=== PATIENT | female | born 1950 | race Caucasian/White ===

== ENCOUNTER 2018-03-20 03:56 | Emergency (ER) | payer OTHER ==
[~2018-03-20] VITALS: Ht 162.6 cm; Wt 72.6 kg
[2018-03-20] MEDS ORDERED: ONDANSETRON HCL 4 MG/2 ML VIAL IV ONE (04:30)
[2018-03-20] MEDS ORDERED: NALBUPHINE HCL 10 MG/1ml INJECTION IV ONE (04:30)
[2018-03-20] MEDS ORDERED: KETOROLAC TROMETH 30 MG/ML 1ML VIAL IV ONE ×2 (04:30→09:15)
[2018-03-20 04:52] LABS: Basophils # (auto) 0.1 uL; Basophils % (auto) 0.9 % (0.0-2.0); Eosinophils # (auto) 0 uL; Eosinophils % (auto) 0.6 % (0.0-7.0); Hematocrit 43.6 % (36.0-46.0); Hemoglobin 14.5 g/dL (12.2-16.2); Lymphocytes # (auto) 1.7 uL; Lymphocytes % (auto) 32.2 % (10.0-50.0); Mean Corpuscular Hemoglobin 30.4 pg (28.0-32.0); Mean Corpuscular Hgb Conc. 33.4 g/dL (32.0-36.0); Monocytes # (auto) 0.5 uL; Monocytes % (auto) 10.2 % (0.0-12.0); Neutrophils % (auto) 56.1 % (37.0-80.0); Nucleated Red Blood Cells % 0.1 %; Platelet Count (auto) 341 10^3/uL (140-450); Red Blood Cells 4.79 10^6/uL (4.0-5.20); Red Cell Distribution Width 13.8 % (11.8-14.3); White Blood Cell 5.3 10^3/uL (4.4-10.8)
[2018-03-20 05:02] LABS: Magnesium 2.2 mg/dL (1.6-2.6)
[2018-03-20 05:03] LABS: Albumin 3.6 g/dL (3.4-5.0); Anion Gap 11 (5-15); BUN/Creatinine Ratio 16.2; Blood Urea Nitrogen 12 mg/dL (7-18); Calcium 9.3 mg/dL (8.5-10.1); Carbon Dioxide 21 mmol/L (21-32); Chloride 108 mmol/L (98-107); GFR African American 101 mL/min; GFR Non-African American 83 mL/min; Glucose 134 mg/dL (74-106); Lipase 102 U/L (73-393); Potassium 3.5 mmol/L (3.5-5.1); Sodium 140 mmol/L (136-145)
[2018-03-20 05:08] LABS: Alanine Aminotransferase 30 U/L (13-56); Alkaline Phosphatase 79 U/L (45-117); Aspartate Aminotransferase 19 U/L (15-37); Bilirubin, Total < 0.1 mg/dL (0.2-1.0); Total Protein 6.8 g/dL (6.4-8.2)
[2018-03-20] MEDS ORDERED: cefTRIAXone 1GM/10ml IVPUSH 10 ML IV ONE (05:45)
[2018-03-20 07:01] LABS: Urine Bacteria FEW /hpf (None Seen); Urine Blood TRACE /uL (Negative); Urine Specific Gravity 1.016 (1.001-1.035); Urine WBC 13 /hpf (0 - 5)
[2018-03-20 09:00] VITALS: BP 144/67
[2018-03-20] MEDS ORDERED: MORPHINE SULFATE 8mg/ml INJ SDV IV ONE (09:15)
== END 2018-03-20 05:54 | disposition short-term general hospital (02) ==
LOC: EDBD 03:56 → ER 03:56
DX: N20.1 Calculus of ureter (principal); N13.9 Obstructive and reflux uropathy, unspecified; Z88.8 Allergy status to other drugs, medicaments and biological substances
CPT/HCPCS: 36415; 74176; 80053; 81001; 82150; 83690; 83735; 84484; 85025; 93005; 94761; 96374; 96375; 96376; 99285; J1885; J2270; J2300; J2405